=== PATIENT | male | born 1950 | race Caucasian/White ===

== ENCOUNTER 2021-06-13 13:55 | Observation (INO) | payer MEDICARE, MEDICAID ==
[2021-06-13] MEDS ORDERED: MVI, Adult with Vitamin K 10 ML, Thiamine 100 MG, Folic Acid 1 MG in Sodium Chloride 0.... IV ONE ×4 (14:04)
--- NOTE | 2021-06-13 14:07 | EDM.PDOC ---
ED HPI GENERAL MEDICAL PROBLEM - General Chief Complaint: General Stated Complaint: EMS Time Seen by Provider: 06/13/21 13:59 Source of Information: Reports: Patient History Limitations: Reports: No Limitations - History of Present Illness INITIAL COMMENTS - FREE TEXT/NARRATIVE: HISTORY AND PHYSICAL: History of present illness: Patient is a 70-year-old male who presents to the emergency room by ambulance after falling. Patient states he is a daily drinker and states he has been drinking black velvet all day (which is typical for him) at a friend's house. He currently offers no complaints or concerns. EMS was told that he had fallen from a standing height. Patient states he falls frequently, does have a large hematoma/bruise of the right elbow which he reports is from 2 weeks ago. Upon arrival he is alert, oriented but agreeable for evaluation. Patient denies any fever, chills, headache, change in vision, syncope or near syncope. Denies any chest pain, back pain, shortness of breath or cough. Denies any abdominal pain, nausea, vomiting, diarrhea, constipation or dysuria. Has not noted any blood in urine or stool. Patient has been eating and drinking appropriately. No recent travel or sick contacts. Review of systems: As per history of present illness and below otherwise all systems reviewed and negative. Past medical history: As per history of present illness and as reviewed below otherwise noncontributory. Surgical history: As per history of present illness and as reviewed below otherwise noncontributory. Social history: See social history for further information Family history: As per history of present illness and as reviewed below otherwise noncontributory. Physical exam: General: Well developed and well nourished 70-year-old female. Alert and orientated x 3. Nontoxic in appearance and in no acute distress. Vital signs are stable and have been reviewed by me. Nursing notes were reviewed. HEENT: Nontender to touch, no obvious injury noted, normocephalic, pupils equal and reactive bilaterally, negative for conjunctival pallor or scleral icterus, mucous membranes moist, TMs normal bilaterally, throat clear, neck supple, nonte nder, trachea midline. No drooling or trismus noted. No meningeal signs. No hot potato voice noted. Lungs: Slightly diminished to auscultation bilaterally. No wheezes, rales, or rhonchi. Chest nontender. Normal work of breathing, no accessory muscles used. Heart: S1S2, regular rate and rhythm without overt murmur, gallops, or rubs. No JVD. No peripheral edema Abdomen: Soft, nondistended, nontender. Normoactive bowel sounds. Negative for masses or costovertebral tenderness. C-spine/Back: No pinpoint vertebral tenderness upon palpation. No crepitus, step-offs or obvious deformities. Pelvis is stable. Good flexion and extension of lower extremities, equal strength. Denies any urinary or fecal incontinence. Denies any numbness, tingling or saddle paresthesia. No concerns of serious infection, fracture or cord compression, or cauda equina syndrome. Deep tendon reflexes brisk bilaterally. Skin: Intact, warm, dry. Soft tissue swelling of right elbow. Excessively dry skin to feet bilaterally. No lesions or rashes noted. Hematologic: No petechiae or purpra. Mucosa appropriate color and normal nail bed color and refill. Extremities: Moves all extremities per self without difficulty or deficits, negative for cords or calf pain, equal strength to upper and lower extremiteis bilaterally. Strong and equal pretibial/pedal and radial pulses bilaterally. Neurovascular unremarkable. Neuro: Awake, alert, oriented. Cranial nerves II through XII unremarkable. Cerebellum unremarkable. Motor and sensory unremarkable throughout. Exam nonfocal. Psychiatric: Mood and affect are appropriate. Normal thought process. Answering questions appropriately. Please note that the patient was seen and evaluated during the 2019 SARS-CoV-2 novel coronavirus pandemic period. Community viral transmission is ongoing at time of this encounter and the emergency department is operating under pandemic response procedures. Medical Decision Making: Patient is a 70-year-old male who presents to the emergency room by ambulance after a fall. Patient states he is a daily drinker and has been drinking black velvet all day. On arrival he is alert, oriented and answering questions appropriately and following commands. He states he does not remember falling although he does fall frequently. At this time nothing is hurting and he offers no complaints or concerns. He is agreeable for an evaluation. Due to the intoxication I will do a head and neck CT with basic x-rays to rule out any distracting injuries. We will do basic lab work at this time as well. Patient does have a slight leukocytosis. Potassium is low at 2.9. Will replace with IV potassium since he will likely be admitted. His alcohol is currently 330. Elbow x-ray is negative right elbow. Focal soft tissue swelling along the dorsal aspect of the proximal forearm. Chest x-ray shows minimal airspace densities present in the medial left lung base. Findings may be due to atelectasis. Pelvis x-ray shows degenerative changes. No visible acute posttraumatic finding. Head CT shows a small acute subarachnoid hemorrhage overlying the high right frontal convexities. No intraparenchymal hemorrhage. Atrophy and white matter disease. The calvaria appear intact. C-spine CT shows no fracture, dislocation or destructive process. Mild to moderate degenerative changes. Dense atherosclerotic vascular calcifications. There is a 4 millimeter left upper lobe nodule. A nodule of this size does not require follow-up except in high-risk individuals in which case a 12 month follow-up CT should be considered. 1350: I spoke with Dr Lima, ED physician, at [facility] in [place] about this patient. She wanted me to talk with Dr Martino, Neurosurgeon on-call. Spoke with Dr Martino about this patient. Reviewed all findings and patient's current status. Dr Martino does not feel this patient requires transfer, stating this is not a surgical issue and doesn't require more than observation. Recommends routine neuro checks and if there is any change in status to repeat imaging. Spoke with Dr Palacio, hospitalist on-call, who is aware of patient and recommendations by Dr. Martino. He is agreeable to keeping this patient for further care and management. Patient continues to be neurologically intact. Patient continues to deny any pain or concerns at this time. I have talked with the patient about today's findings, in addition to providing specific details for plan of care. Reassessment demonstrates that the patient is in no acute distress. Patient is alert and answering questions appropriately. He is aware of today's need to stay for further care and management. VSS. Will continue to do frequent neurochecks while waiting for Med/Surg bed. Diagnostics: CBC, CMP, UA, urine drug screen, EtOH, COVID-19, head CT, cervical spine CT, chest x-ray, pelvis, right elbow Therapeutics: Banana bag @ 125mlsl/hr Impression: Acute alcohol intoxication Subarachnoid hemorrhage Fall Plan: Observation admission with telemetry Definitive disposition and diagnosis as appropriate pending reevaluation and review of above. - Related Data Allergies Allergy/AdvReac Type Severity Reaction Status Date / Time No Known Allergies Allergy Verified 06/13/21 13:59 ED ROS GENERAL - Review of Systems Review Of Systems: Comprehensive ROS is negative, except as noted in HPI. ED EXAM, GENERAL - Physical Exam Exam: See Below (See dictation) Course - Vital Signs Last Recorded V/S: Last Vital Signs Temp 96.5 F L 06/13/21 14:03 Pulse 72 06/13/21 15:44 Resp 18 06/13/21 15:44 BP 132/75 06/13/21 15:44 Pulse Ox 97 06/13/21 15:44 - Orders/Labs/Meds Orders: Active Orders 24 hr Category Date Time Status DRUG SCREEN, URINE [URCHEM] Stat Lab 06/13/21 14:06 Ordered UA RFX BHANU AND CULT IF INDIC [URIN] Stat Lab 06/13/21 14:04 Ordered Medication Orders Potassium Chloride 40 meq/ (Premix) 100 mls @ 25 mls/hr IV ONETIME ONE Stop: 06/13/21 20:16 Labs: Laboratory Tests 06/13/21 06/13/21 06/13/21 Range/Units 14:19 15:00 15:00 WBC 12.01 H (4.0-11.0) K/uL RBC 4.31 L (4.50-5.90) M/uL Hgb 14.4 (13.0-17.0) g/dL Hct 38.9 (38.0-50.0) % MCV 90.3 (80.0-98.0) fL MCH 33.4 H (27.0-32.0) pg MCHC 37.0 (31.0-37.0) g/dL RDW Std Deviation 49.8 (28.0-62.0) fl RDW Coeff of [place]asa 15 (11.0-15.0) % Plt Count 139 L (150-400) K/uL MPV 8.70 (7.40-12.00) fL Neut % (Auto) 69.2 (48.0-80.0) % Lymph % (Auto) 24.6 (16.0-40.0) % [place] % (Auto) 5.6 (0.0-15.0) % Eos % (Auto) 0.4 (0.0-7.0) % Baso % (Auto) 0.2 (0.0-1.5) % Neut # (Auto) 8.3 H (1.4-5.7) K/uL Lymph # (Auto) 3.0 H (0.6-2.4) K/uL [place] # (Auto) 0.7 (0.0-0.8) K/uL Eos # (Auto) 0.1 (0.0-0.7) K/uL Baso # (Auto) 0.0 (0.0-0.1) K/uL Nucleated RBC % 0.0 /100WBC Nucleated RBCs # 0 K/uL INR 0.95 Sodium (136-148) mmol/L Potassium (3.5-5.1) mmol/L Chloride (98-107) mmol/L Carbon Dioxide (21.0-32.0) mmol/L BUN (7.0-18.0) mg/dL Creatinine (0.8-1.3) mg/dL Est Cr Clr Drug Dosing Estimated GFR (MDRD) ml/min Glucose (74-106) mg/dL Calcium (8.5-10.1) mg/dL Total Bilirubin (0.2-1.0) mg/dL AST (15-37) IU/L ALT (14-63) IU/L Alkaline Phosphatase (46-116) U/L Troponin I (0.000-0.056) ng/mL Total Protein (6.4-8.2) g/dL Albumin (3.4-5.0) g/dL Globulin (2.6-4.0) g/dL Albumin/Globulin Ratio (0.9-1.6) Ethyl Alcohol mg/dL SARS-CoV-2 RNA ([facility]) NEGATIVE (NEGATIVE) 06/13/21 Range/Units 15:00 WBC (4.0-11.0) K/uL RBC (4.50-5.90) M/uL Hgb (13.0-17.0) g/dL Hct (38.0-50.0) % MCV (80.0-98.0) fL MCH (27.0-32.0) pg MCHC (31.0-37.0) g/dL RDW Std Deviation (28.0-62.0) fl RDW Coeff of [place] (11.0-15.0) % Plt Count (150-400) K/uL MPV (7.40-12.00) fL Neut % (Auto) (48.0-80.0) % Lymph % (Auto) (16.0-40.0) % [place] % (Auto) (0.0-15.0) % Eos % (Auto) (0.0-7.0) % Baso % (Auto) (0.0-1.5) % Neut # (Auto) (1.4-5.7) K/uL Lymph # (Auto) (0.6-2.4) K/uL [place] # (Auto) (0.0-0.8) K/uL Eos # (Auto) (0.0-0.7) K/uL Baso # (Auto) (0.0-0.1) K/uL Nucleated RBC % /100WBC Nucleated RBCs # K/uL INR Sodium 133 L (136-148) mmol/L Potassium 2.9 L (3.5-5.1) mmol/L Chloride 94 L (98-107) mmol/L Carbon Dioxide 23.2 (21.0-32.0) mmol/L BUN 9 (7.0-18.0) mg/dL Creatinine 0.9 (0.8-1.3) mg/dL Est Cr Clr Drug Dosing TNP Estimated GFR (MDRD) > 60.0 ml/min Glucose 120 H (74-106) mg/dL Calcium 8.7 (8.5-10.1) mg/dL Total Bilirubin 0.7 (0.2-1.0) mg/dL AST 37 (15-37) IU/L ALT 44 (14-63) IU/L Alkaline Phosphatase 90 (46-116) U/L Troponin I < 0.050 (0.000-0.056) ng/mL Total Protein 7.7 (6.4-8.2) g/dL Albumin 3.4 (3.4-5.0) g/dL Globulin 4.3 H (2.6-4.0) g/dL Albumin/Globulin Ratio 0.8 L (0.9-1.6) Ethyl Alcohol 330 mg/dL SARS-CoV-2 RNA ([facility]) (NEGATIVE) Meds: Medications Generic Name Dose Route Start Last Admin Trade Name Freq PRN Reason Stop Dose Admin Potassium Chloride 40 meq/ 100 mls @ 25 mls/hr 06/13/21 16:17 Premix IV 06/13/21 20:16 ONETIME ONE Discontinued Medications Generic Name Dose Route Start Last Admin Trade Name Johnnie PRN Reason Stop Dose Admin Folic Acid 1 mg 06/13/21 15:30 06/13/21 15:49 Folic Acid 50 Mg/10 Ml Mdv IV 06/13/21 15:31 1 mg ONETIME ONE Administration Sodium Chloride 1,000 mls @ 999 mls/hr 06/13/21 14:14 06/13/21 15:47 Normal Saline IV 06/13/21 15:14 Not Given STAT ONE Multivitamins/Minerals 10 ml/ 1,010 mls @ 1,010 mls/hr 06/13/21 15:30 06/13/21 15:50 Sodium Chloride IV 06/13/21 16:29 1,010 mls/hr ONETIME ONE Administration Thiamine HCl 100 mg 06/13/21 15:30 06/13/21 16:07 Thiamine 200 Mg/2 Ml Mdv IVPUSH 06/13/21 15:31 100 mg ONETIME ONE Administration Departure - Departure Time of Disposition: 16:55 Disposition: Home, Self-Care 01 Clinical Impression: Subarachnoid hemorrhage, Hypokalemia Fall Qualifiers: Encounter type: initial encounter Qualified Code(s): W19.XXXA - Unspecified fall, initial encounter - Discharge Information Sepsis Event Note (ED) - Evaluation Sepsis Screening Result: No Definite Risk - Focused Exam Vital Signs: Vital Signs Temp Pulse Resp BP Pulse Ox 06/13/21 15:44 72 18 132/75 97 06/13/21 14:03 96.5 F L 78 16 127/82 96 - My Orders Last 24 Hours: My Active Orders 06/13/21 14:04 UA RFX BHANU AND CULT IF INDIC [URIN] Stat 06/13/21 14:06 DRUG SCREEN, URINE [URCHEM] Stat - Assessment/Plan Last 24 Hours: My Active Orders 06/13/21 14:04 UA RFX BHANU AND CULT IF INDIC [URIN] Stat 06/13/21 14:06 DRUG SCREEN, URINE [URCHEM] Stat
[2021-06-13] MEDS ORDERED: Sodium Chloride 0.9% 1,000 ML IV ONE (14:14)
--- NOTE | 2021-06-13 14:32 | CR ---
INDICATION: Alcohol intoxication, unwitnessed chest injury from fall TECHNIQUE: Chest radiograph 1 view COMPARISON: None FINDINGS: The sensitivity and specificity of the exam are moderately limited by the patient`s body habitus and the lordotic technique. Mediastinum: The mediastinum is normal in appearance. The heart silhouette is normal in size and morphology. Lung: Minimal airspace densities present in the medial left lung base. No sign of pleural effusion seen. No pneumothorax is identified. Bone and Soft tissue: Unremarkable for age. IMPRESSIONS: 1. Minimal airspace densities present in the medial left lung base. Findings may be due to atelectasis. 2. If there is a high clinical index of suspicion for rib injury, dedicated rib series radiographs are recommended. Dictated by Augustine Salgado MD @ 06/13/2021 2:31:42 PM Dictated by: Augustine Salgado MD @ 06/13/2021 14:31:47 (Electronically Signed)
--- NOTE | 2021-06-13 15:01 | CR ---
INDICATION: Unwitnessed fall. ETOH. TECHNIQUE: Three views of the right elbow. COMPARISON: None. FINDINGS: Focal soft tissue swelling along the dorsal aspect of the proximal forearm. No elbow joint effusion, fracture or other abnormality. IMPRESSION: 1. Negative right elbow. 2. Focal soft tissue swelling along the dorsal aspect of the proximal forearm. Dictated by Donald Haile MD @ 06/13/2021 3:00:34 PM (Electronically Signed)
--- NOTE | 2021-06-13 15:01 | CR ---
Indication: Pain. Trauma. Technique: Single view of the pelvis was acquired Comparison: None Findings: Degenerative changes of the visible lower lumbar spine. 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 No visible acute fracture, dislocation or destructive process. Impression: Degenerative changes. No visible acute posttraumatic finding. Dictated by Eduardo Pedroza MD @ 06/13/2021 3:00:48 PM (Electronically Signed)
[2021-06-13] MEDS ORDERED: Folic Acid 50 MG/10 ML MDV IV ONE (15:30)
[2021-06-13] MEDS ORDERED: Thiamine 200 MG/2 ML MDV IVPUSH ONE (15:30)
[2021-06-13] MEDS ORDERED: MVI, Adult with Vitamin K 10 ML in Sodium Chloride 0.9% 1,000 ML IV ONE ×2 (15:30)
--- NOTE | 2021-06-13 15:39 | CT ---
INDICATION: Trauma. ETOH COMPARISON: No prior CTs available for comparison. TECHNIQUE: CT examination of the head was performed as axial sections without intravenous contrast. Images were obtained from the vertex of the skull through the skull base. Please note that all CT scans at this facility use dose modulation, iterative reconstruction, and/or weight-based dosing when appropriate to reduce radiation dose to as low as reasonably achievable. FINDINGS: There is a small acute subarachnoid hemorrhage identified. This overlies the right frontal convexities and is seen on axial image 35, 37, 38 and 39. No intraparenchymal hemorrhage. There are involutional changes. There is moderate cortical atrophy and there is mild to moderate white matter disease. There is no hydrocephalus. The visualized portions of the orbits are normal in appearance. The osseous structures are normal in appearance with no sign of abnormality in the skull base or calvarium. IMPRESSION: 1. Small acute subarachnoid hemorrhage overlying the high right frontal convexities. No intraparenchymal hemorrhage. 2. Atrophy and white matter disease. 3. The calvaria appear intact. 4. I discussed the above findings directly with Dr. Jean at 3:35 p.m. on June 13, [address] all [address] scans at this facility use dose modulation, iterative reconstruction, and/or weight-based dosing when appropriate to reduce radiation dose to as low as reasonably achievable. Dictated by Eduardo Pedroza MD @ 06/13/2021 3:38:01 PM (Electronically Signed)
[2021-06-13 15:41] LABS: BLOOD UREA NITROGEN,BUN 9 mg/dL (7.0-18.0); CARBON DIOXIDE,CO2 23.2 mmol/L (21.0-32.0); CHLORIDE,CL 94 mmol/L (98-107); GLUCOSE RANDOM 120 mg/dL (74-106); POTASSIUM,K 2.9 mmol/L (3.5-5.1); SODIUM,NA 133 mmol/L (136-148)
--- NOTE | 2021-06-13 15:43 | CT ---
INDICATION: Trauma COMPARISON: None TECHNIQUE: CT examination of the cervical spine is performed without contrast using spiral technique. Thin axial, sagittal and coronal reconstructions were made. Please note that all CT scans at this facility use dose modulation, iterative reconstruction, and/or weight-based dosing when appropriate to reduce radiation dose to as low as reasonably achievable. FINDINGS: : Bone mineral density is decreased. There is no lytic or blastic lesion, fracture or dislocation identified. There are [id number] degenerative changes primarily in the mid and lower cervical spine. There are dense atherosclerotic vascular calcifications. A 4 millimeter left upper lobe nodule is identified. Generally, nodules of this size do not require follow-up except in high-risk individuals in which case a 12 month follow-up CT would be advised. IMPRESSION: 1. No fracture, dislocation or destructive process. Mild to moderate degenerative changes. 2. Dense atherosclerotic vascular calcifications. 3. There is a 4 millimeter left upper lobe nodule. A nodule of this size does not require follow-up except in high-risk individuals in which case a 12 month follow-up CT should be considered. Please note that all CT scans at this facility use dose modulation, iterative reconstruction, and/or weight-based dosing when appropriate to reduce radiation dose to as low as reasonably achievable. Dictated by Eduardo Pedroza MD @ 06/13/2021 3:42:34 PM (Electronically Signed)
[2021-06-13] MEDS ORDERED: Potassium Chloride Riders 40 MEQ in Premix Bag 1 BAG IV ONE (16:17)
--- NOTE | 2021-06-13 16:50 | PCM.EKG ---
#1 Interpretation EKG Date: 06/13/21 Time: 14:22 Rhythm: NSR Rate (Beats/Min): 73 [place]: Normal P-Wave: Present QRS: Other (non specfic IVCD) ST-T: Normal QT: Normal Comparison: NA - No Prior EKG EKG Interpretation Comments: Sinus Rhythm with nonspecific IVCD
[2021-06-13] MEDS ORDERED: Acetaminophen 325 MG Tab PO PRN (17:05)
--- NOTE | 2021-06-13 17:13 | PCM.HP.2 ---
H&P History of Present Illness - General Date of Service: 06/13/21 Admit Problem/Dx: Admission Diagnosis/Problem Admission Diagnosis/Problem Subarachnoid hemorrhage - History of Present Illness Initial Comments - Free Text/Narative: 70 yo male with pmh of ETOH abuse presents to the ED via ambulance after falling. He drinks daily and is intoxicated in the ED. He denies any headache, chest pain, shortness of breath or fevers. IN the ED CT head reported small Subarachnoid hemorrhage of the right frontal convexities. Dr. Martino was called and recommended observation. - Related Data Allergies/Adverse Reactions: Allergies Allergy/AdvReac Type Severity Reaction Status Date / Time No Known Allergies Allergy Verified 06/13/21 13:59 Past Medical History - Past Health History Medical/Surgical History: Denies Medical/Surgical History Other Cardiovascular History: pt states he has heart problem that he takes pills for, but is unable to state what the condition is - Infectious Disease History Infectious Disease History: Reports: Chicken Pox, Mumps Social & Family History - Family History Family Medical History: No Pertinent Family History - Tobacco Use Tobacco Use Status *Q: Current Every Day Tobacco User Years of Tobacco use: 40 Packs/Tins Daily: 1 - Recreational Drug Use Recreational Drug Use: No H&P Review of Systems - Review of Systems: Review Of Systems: Comprehensive ROS is negative, except as noted in HPI. Exam - Exam Exam: See Below - Vital Signs Vital Signs: Last Vital Signs Temp 35.8 C L 06/13/21 14:03 Pulse 72 06/13/21 15:44 Resp 18 06/13/21 15:44 BP 132/75 06/13/21 15:44 Pulse Ox 97 06/13/21 15:44 Weight: 95.254 kg - Exam General: Alert, Oriented HEENT: Mucosa Moist & Kemp, Posterior Pharynx Clear, Pupils Equal, Other (atraumatic) Lungs: Clear to Auscultation, Normal Respiratory Effort Cardiovascular: Regular Rate, Regular Rhythm GI/Abdominal Exam: Normal Bowel Sounds, Soft, Non-Tender Extremities: Non-Tender, No Pedal Edema Skin: Warm, Dry, Intact Neurological: Cranial Nerves Intact, Strength Equal Bilateral, Normal Gait, Normal Speech. No: Focal Deficit - Patient Data Lab Results Last 24 hrs: Laboratory Results - last 24 hr 06/13/21 06/13/21 06/13/21 Range/Units 14:19 15:00 15:00 WBC 12.01 H (4.0-11.0) K/uL RBC 4.31 L (4.50-5.90) M/uL Hgb 14.4 (13.0-17.0) g/dL Hct 38.9 (38.0-50.0) % MCV 90.3 (80.0-98.0) fL MCH 33.4 H (27.0-32.0) pg MCHC 37.0 (31.0-37.0) g/dL RDW Std Deviation 49.8 (28.0-62.0) fl RDW Coeff of Manasa 15 (11.0-15.0) % Plt Count 139 L (150-400) K/uL MPV 8.70 (7.40-12.00) fL Neut % (Auto) 69.2 (48.0-80.0) % Lymph % (Auto) 24.6 (16.0-40.0) % Delta % (Auto) 5.6 (0.0-15.0) % Eos % (Auto) 0.4 (0.0-7.0) % Baso % (Auto) 0.2 (0.0-1.5) % Neut # (Auto) 8.3 H (1.4-5.7) K/uL Lymph # (Auto) 3.0 H (0.6-2.4) K/uL Delta # (Auto) 0.7 (0.0-0.8) K/uL Eos # (Auto) 0.1 (0.0-0.7) K/uL Baso # (Auto) 0.0 (0.0-0.1) K/uL Nucleated RBC % 0.0 /100WBC Nucleated RBCs # 0 K/uL INR 0.95 Sodium (136-148) mmol/L Potassium (3.5-5.1) mmol/L Chloride (98-107) mmol/L Carbon Dioxide (21.0-32.0) mmol/L BUN (7.0-18.0) mg/dL Creatinine (0.8-1.3) mg/dL Est Cr Clr Drug Dosing Estimated GFR (MDRD) ml/min Glucose (74-106) mg/dL Calcium (8.5-10.1) mg/dL Total Bilirubin (0.2-1.0) mg/dL AST (15-37) IU/L ALT (14-63) IU/L Alkaline Phosphatase (46-116) U/L Troponin I (0.000-0.056) ng/mL Total Protein (6.4-8.2) g/dL Albumin (3.4-5.0) g/dL Globulin (2.6-4.0) g/dL Albumin/Globulin Ratio (0.9-1.6) Ethyl Alcohol mg/dL SARS-CoV-2 RNA ([facility]) NEGATIVE (NEGATIVE) 06/13/21 Range/Units 15:00 WBC (4.0-11.0) K/uL RBC (4.50-5.90) M/uL Hgb (13.0-17.0) g/dL Hct (38.0-50.0) % MCV (80.0-98.0) fL MCH (27.0-32.0) pg MCHC (31.0-37.0) g/dL RDW Std Deviation (28.0-62.0) fl RDW Coeff of Manasa (11.0-15.0) % Plt Count (150-400) K/uL MPV (7.40-12.00) fL Neut % (Auto) (48.0-80.0) % Lymph % (Auto) (16.0-40.0) % Delta % (Auto) (0.0-15.0) % Eos % (Auto) (0.0-7.0) % Baso % (Auto) (0.0-1.5) % Neut # (Auto) (1.4-5.7) K/uL Lymph # (Auto) (0.6-2.4) K/uL Delta # (Auto) (0.0-0.8) K/uL Eos # (Auto) (0.0-0.7) K/uL Baso # (Auto) (0.0-0.1) K/uL Nucleated RBC % /100WBC Nucleated RBCs # K/uL INR Sodium 133 L (136-148) mmol/L Potassium 2.9 L (3.5-5.1) mmol/L Chloride 94 L (98-107) mmol/L Carbon Dioxide 23.2 (21.0-32.0) mmol/L BUN 9 (7.0-18.0) mg/dL Creatinine 0.9 (0.8-1.3) mg/dL Est Cr Clr Drug Dosing TNP Estimated GFR (MDRD) > 60.0 ml/min Glucose 120 H (74-106) mg/dL Calcium 8.7 (8.5-10.1) mg/dL Total Bilirubin 0.7 (0.2-1.0) mg/dL AST 37 (15-37) IU/L ALT 44 (14-63) IU/L Alkaline Phosphatase 90 (46-116) U/L Troponin I < 0.050 (0.000-0.056) ng/mL Total Protein 7.7 (6.4-8.2) g/dL Albumin 3.4 (3.4-5.0) g/dL Globulin 4.3 H (2.6-4.0) g/dL Albumin/Globulin Ratio 0.8 L (0.9-1.6) Ethyl Alcohol 330 mg/dL SARS-CoV-2 RNA ([facility]) (NEGATIVE) Result Diagrams: 06/13/21 15:00 06/13/21 15:00 Sepsis Event Note - Evaluation Sepsis Screening Result: No Definite Risk - Focused Exam Vital Signs: Vital Signs Temp Pulse Resp BP Pulse Ox 06/13/21 15:44 72 18 132/75 97 06/13/21 14:03 35.8 C L 78 16 127/82 96 Problem List Initiated/Reviewed/Updated: Yes Orders Last 24hrs: Active Orders 24 hr Category Date Time Status Admission Status [Patient Status] [ADT] Stat ADT 06/13/21 15:55 Active Antiembolic Devices [RC] PER UNIT ROUTINE Care 06/13/21 17:06 Active Neuro Check [RC] Q4HPRN Care 06/13/21 17:06 Active Oxygen Therapy [RC] PRN Care 06/13/21 17:05 Active Up ad Marilee [RC] ASDIRECTED Care 06/13/21 17:05 Active VTE/DVT Education [RC] PER UNIT ROUTINE Care 06/13/21 17:05 Active Vital Signs [RC] Q4H Care 06/13/21 17:05 Active Regular Diet [DIET] Diet 06/13/21 Breakfast Active CBC WITH AUTO DIFF [HEME] AM Lab 06/14/21 05:11 Ordered COMPREHENSIVE METABOLIC PN,CMP [CHEM] AM Lab 06/14/21 05:11 Ordered DRUG SCREEN, URINE [URCHEM] Stat Lab 06/13/21 14:06 Ordered MAGNESIUM [CHEM] AM Lab 06/14/21 05:11 Ordered MAGNESIUM [CHEM] Routine Lab 06/13/21 17:05 Ordered PHOSPHORUS [CHEM] AM Lab 06/14/21 05:11 Ordered PHOSPHORUS [CHEM] Routine Lab 06/13/21 17:05 Ordered UA RFX BHANU AND CULT IF INDIC [URIN] Stat Lab 06/13/21 14:04 Ordered Acetaminophen [TylenoL] Med 06/13/21 17:05 Ordered 650 mg PO Q4H PRN Folic Acid Med 06/14/21 09:00 Ordered 1 mg SUBCUT DAILY LORazepam [Ativan] Med 06/13/21 17:08 Ordered See Protocol IVPUSH Q4H PRN Potassium Chloride Riders [KCL in Water 40 MEQ/100 ML] Med 06/13/21 16:17 Active 40 meq Premix Bag 1 bag IV ONETIME Thiamine [Vitamin B-1] Med 06/14/21 09:00 Ordered 100 mg IVPUSH DAILY Sequential Compression Device [OM.PC] Per Unit Routine Oth 06/13/21 17:05 Ordered Resuscitation Status Routine Resus Stat 06/13/21 17:05 Ordered Medication Orders Acetaminophen (Acetaminophen 325 Mg Tab) 650 mg PO Q4H PRN PRN Reason: Pain (Mild 1-3)/fever Folic Acid (Folic Acid 50 Mg/10 Ml Mdv) 1 mg SUBCUT DAILY LIBBY Potassium Chloride 40 meq/ (Premix) 100 mls @ 25 mls/hr IV ONETIME ONE Stop: 06/13/21 20:16 Lorazepam (Lorazepam 2 Mg/Ml Sdv) 0 mg IVPUSH Q4H PRN; Protocol PRN Reason: CIWAA Thiamine HCl (Thiamine 200 Mg/2 Ml Mdv) 100 mg IVPUSH DAILY LIBBY Assessment/Plan Comment:: 70 yo male with PMH of ETOH abuse admitted following a fall with subarachnoid hemorrhage. Subarachnoid hemorrhage: will monitor overnight ETOH abuse: will place on CIWAA protocol, thiamin and folic acid
[2021-06-13] MEDS ORDERED: Sodium Chloride 0.9% with KCl 1,000 ML IV ONE (18:00)
[2021-06-14] MEDS: LORazepam 2 MG/ML SDV IVPUSH PRN ×4 (03:14→13:12)
[2021-06-14 08:34] LABS: BLOOD UREA NITROGEN,BUN 9 mg/dL (7.0-18.0); CARBON DIOXIDE,CO2 25.1 mmol/L (21.0-32.0); CHLORIDE,CL 101 mmol/L (98-107); GLUCOSE RANDOM 105 mg/dL (74-106); POTASSIUM,K 3.5 mmol/L (3.5-5.1); SODIUM,NA 140 mmol/L (136-148)
[2021-06-14] MEDS: Thiamine 200 MG/2 ML MDV IVPUSH SCH (08:55)
[2021-06-14] MEDS: Folic Acid 50 MG/10 ML MDV SUBCUT SCH (08:58)
[2021-06-14] MEDS ORDERED: Magnesium Sulfate/Water 2 GM/50 ML Premix Bag IV ONE (14:08)
--- NOTE | 2021-06-14 14:09 | PCM.PN ---
- General Info Date of Service: 06/14/21 - Review of Systems Systems Review Comment:: no headache, no weakness or numbness - Patient Data Vitals - Most Recent: Last Vital Signs Temp 37.5 C 06/14/21 09:04 Pulse 102 H 06/14/21 09:04 Resp 19 06/14/21 09:04 BP 146/91 H 06/14/21 09:04 Pulse Ox 92 L 06/14/21 09:04 Weight - Most Recent: 95.254 kg I&O - Last 24 Hours: Intake & Output 06/13/21 06/14/21 06/14/21 22:59 06:59 14:59 Intake Total 800 Output Total 1200 Balance -400 Lab Results Last 24 Hours: Laboratory Results - last 24 hr 06/13/21 06/13/21 06/13/21 Range/Units 14:19 15:00 15:00 WBC 12.01 H (4.0-11.0) K/uL RBC 4.31 L (4.50-5.90) M/uL Hgb 14.4 (13.0-17.0) g/dL Hct 38.9 (38.0-50.0) % MCV 90.3 (80.0-98.0) fL MCH 33.4 H (27.0-32.0) pg MCHC 37.0 (31.0-37.0) g/dL RDW Std Deviation 49.8 (28.0-62.0) fl RDW Coeff of [place] 15 (11.0-15.0) % Plt Count 139 L (150-400) K/uL MPV 8.70 (7.40-12.00) fL Neut % (Auto) 69.2 (48.0-80.0) % Lymph % (Auto) 24.6 (16.0-40.0) % [place] % (Auto) 5.6 (0.0-15.0) % Eos % (Auto) 0.4 (0.0-7.0) % Baso % (Auto) 0.2 (0.0-1.5) % Neut # (Auto) 8.3 H (1.4-5.7) K/uL Lymph # (Auto) 3.0 H (0.6-2.4) K/uL [place] # (Auto) 0.7 (0.0-0.8) K/uL Eos # (Auto) 0.1 (0.0-0.7) K/uL Baso # (Auto) 0.0 (0.0-0.1) K/uL Nucleated RBC % 0.0 /100WBC Nucleated RBCs # 0 K/uL INR 0.95 Sodium (136-148) mmol/L Potassium (3.5-5.1) mmol/L Chloride (98-107) mmol/L Carbon Dioxide (21.0-32.0) mmol/L BUN (7.0-18.0) mg/dL Creatinine (0.8-1.3) mg/dL Est Cr Clr Drug Dosing Estimated GFR (MDRD) ml/min Glucose (74-106) mg/dL Calcium (8.5-10.1) mg/dL Phosphorus (2.6-4.7) mg/dL Magnesium (1.8-2.4) mg/dL Total Bilirubin (0.2-1.0) mg/dL AST (15-37) IU/L ALT (14-63) IU/L Alkaline Phosphatase (46-116) U/L Troponin I (0.000-0.056) ng/mL Total Protein (6.4-8.2) g/dL Albumin (3.4-5.0) g/dL Globulin (2.6-4.0) g/dL Albumin/Globulin Ratio (0.9-1.6) Urine Color Urine Appearance Urine pH (5.0-8.0) Ur Specific [place] (1.001-1.035) Urine Protein (NEGATIVE) mg/dL Urine Glucose (UA) (NEGATIVE) mg/dL Urine Ketones (NEGATIVE) mg/dL Urine Occult Blood (NEGATIVE) Urine Nitrite (NEGATIVE) Urine Bilirubin (NEGATIVE) Urine Urobilinogen (<2.0) EU/dL Ur Leukocyte Esterase (NEGATIVE) Urine RBC (0-2/HPF) Urine WBC (0-5/HPF) Ur Epithelial Cells (NONE-FEW) Urine Bacteria (NEGATIVE) Urine Mucus (NONE-MOD) Urine Opiates Screen (NEGATIVE) Ur Oxycodone Screen (NEGATIVE) Urine Methadone Screen (NEGATIVE) Ur Barbiturates Screen (NEGATIVE) Ur Phencyclidine Scrn (NEGATIVE) Ur Amphetamine Screen (NEGATIVE) U Methamphetamines Scrn (NEGATIVE) U Benzodiazepines Scrn (NEGATIVE) U Cocaine Metab Screen (NEGATIVE) U Marijuana (THC) Screen (NEGATIVE) Ethyl Alcohol mg/dL SARS-CoV-2 RNA (MIRA) NEGATIVE (NEGATIVE) 06/13/21 06/13/21 06/13/21 Range/Units 15:00 15:00 21:49 WBC (4.0-11.0) K/uL RBC (4.50-5.90) M/uL Hgb (13.0-17.0) g/dL Hct (38.0-50.0) % MCV (80.0-98.0) fL MCH (27.0-32.0) pg MCHC (31.0-37.0) g/dL RDW Std Deviation (28.0-62.0) fl RDW Coeff of [place] (11.0-15.0) % Plt Count (150-400) K/uL MPV (7.40-12.00) fL Neut % (Auto) (48.0-80.0) % Lymph % (Auto) (16.0-40.0) % [place] % (Auto) (0.0-15.0) % Eos % (Auto) (0.0-7.0) % Baso % (Auto) (0.0-1.5) % Neut # (Auto) (1.4-5.7) K/uL Lymph # (Auto) (0.6-2.4) K/uL [place] # (Auto) (0.0-0.8) K/uL Eos # (Auto) (0.0-0.7) K/uL Baso # (Auto) (0.0-0.1) K/uL Nucleated RBC % /100WBC Nucleated RBCs # K/uL INR Sodium 133 L (136-148) mmol/L Potassium 2.9 L (3.5-5.1) mmol/L Chloride 94 L (98-107) mmol/L Carbon Dioxide 23.2 (21.0-32.0) mmol/L BUN 9 (7.0-18.0) mg/dL Creatinine 0.9 (0.8-1.3) mg/dL Est Cr Clr Drug Dosing TNP Estimated GFR (MDRD) > 60.0 ml/min Glucose 120 H (74-106) mg/dL Calcium 8.7 (8.5-10.1) mg/dL Phosphorus 3.6 (2.6-4.7) mg/dL Magnesium 1.8 (1.8-2.4) mg/dL Total Bilirubin 0.7 (0.2-1.0) mg/dL AST 37 (15-37) IU/L ALT 44 (14-63) IU/L Alkaline Phosphatase 90 (46-116) U/L Troponin I < 0.050 (0.000-0.056) ng/mL Total Protein 7.7 (6.4-8.2) g/dL Albumin 3.4 (3.4-5.0) g/dL Globulin 4.3 H (2.6-4.0) g/dL Albumin/Globulin Ratio 0.8 L (0.9-1.6) Urine Color YELLOW Urine Appearance CLEAR Urine pH 6.0 (5.0-8.0) Ur Specific [place] 1.010 (1.001-1.035) Urine Protein NEGATIVE (NEGATIVE) mg/dL Urine Glucose (UA) NEGATIVE (NEGATIVE) mg/dL Urine Ketones NEGATIVE (NEGATIVE) mg/dL Urine Occult Blood TRACE-INTACT H (NEGATIVE) Urine Nitrite NEGATIVE (NEGATIVE) Urine Bilirubin NEGATIVE (NEGATIVE) Urine Urobilinogen 0.2 (<2.0) EU/dL Ur Leukocyte Esterase NEGATIVE (NEGATIVE) Urine RBC 0-2 (0-2/HPF) Urine WBC 0-1 (0-5/HPF) Ur Epithelial Cells RARE (NONE-FEW) Urine Bacteria FEW (NEGATIVE) Urine Mucus LIGHT (NONE-MOD) Urine Opiates Screen (NEGATIVE) Ur Oxycodone Screen (NEGATIVE) Urine Methadone Screen (NEGATIVE) Ur Barbiturates Screen (NEGATIVE) Ur Phencyclidine Scrn (NEGATIVE) Ur Amphetamine Screen (NEGATIVE) U Methamphetamines Scrn (NEGATIVE) U Benzodiazepines Scrn (NEGATIVE) U Cocaine Metab Screen (NEGATIVE) U Marijuana (THC) Screen (NEGATIVE) Ethyl Alcohol 330 mg/dL SARS-CoV-2 RNA (MIRA) (NEGATIVE) 06/13/21 06/14/21 06/14/21 Range/Units 21:49 06:43 06:43 WBC 8.62 (4.0-11.0) K/uL RBC 4.22 L (4.50-5.90) M/uL Hgb 13.7 (13.0-17.0) g/dL Hct 38.7 (38.0-50.0) % MCV 91.7 (80.0-98.0) fL MCH 32.5 H (27.0-32.0) pg MCHC 35.4 (31.0-37.0) g/dL RDW Std Deviation 50.8 (28.0-62.0) fl RDW Coeff of [place] 15 (11.0-15.0) % Plt Count 152 (150-400) K/uL MPV 9.50 (7.40-12.00) fL Neut % (Auto) 79.5 (48.0-80.0) % Lymph % (Auto) 12.8 L (16.0-40.0) % [place] % (Auto) 7.2 (0.0-15.0) % Eos % (Auto) 0.3 (0.0-7.0) % Baso % (Auto) 0.2 (0.0-1.5) % Neut # (Auto) 6.9 H (1.4-5.7) K/uL Lymph # (Auto) 1.1 (0.6-2.4) K/uL [place] # (Auto) 0.6 (0.0-0.8) K/uL Eos # (Auto) 0.0 (0.0-0.7) K/uL Baso # (Auto) 0.0 (0.0-0.1) K/uL Nucleated RBC % 0.0 /100WBC Nucleated RBCs # 0 K/uL INR Sodium 140 (136-148) mmol/L Potassium 3.5 (3.5-5.1) mmol/L Chloride 101 (98-107) mmol/L Carbon Dioxide 25.1 (21.0-32.0) mmol/L BUN 9 (7.0-18.0) mg/dL Creatinine 0.7 L (0.8-1.3) mg/dL Est Cr Clr Drug Dosing 109.32 Estimated GFR (MDRD) > 60.0 ml/min Glucose 105 (74-106) mg/dL Calcium 8.4 L (8.5-10.1) mg/dL Phosphorus 2.8 (2.6-4.7) mg/dL Magnesium 1.6 L (1.8-2.4) mg/dL Total Bilirubin 1.1 H (0.2-1.0) mg/dL AST 46 H (15-37) IU/L ALT 46 (14-63) IU/L Alkaline Phosphatase 94 (46-116) U/L Troponin I (0.000-0.056) ng/mL Total Protein 7.6 (6.4-8.2) g/dL Albumin 3.6 (3.4-5.0) g/dL Globulin 4.0 (2.6-4.0) g/dL Albumin/Globulin Ratio 0.9 (0.9-1.6) Urine Color Urine Appearance Urine pH (5.0-8.0) Ur Specific [place] (1.001-1.035) Urine Protein (NEGATIVE) mg/dL Urine Glucose (UA) (NEGATIVE) mg/dL Urine Ketones (NEGATIVE) mg/dL Urine Occult Blood (NEGATIVE) Urine Nitrite (NEGATIVE) Urine Bilirubin (NEGATIVE) Urine Urobilinogen (<2.0) EU/dL Ur Leukocyte Esterase (NEGATIVE) Urine RBC (0-2/HPF) Urine WBC (0-5/HPF) Ur Epithelial Cells (NONE-FEW) Urine Bacteria (NEGATIVE) Urine Mucus (NONE-MOD) Urine Opiates Screen NEGATIVE (NEGATIVE) Ur Oxycodone Screen NEGATIVE (NEGATIVE) Urine Methadone Screen NEGATIVE (NEGATIVE) Ur Barbiturates Screen NEGATIVE (NEGATIVE) Ur Phencyclidine Scrn NEGATIVE (NEGATIVE) Ur Amphetamine Screen NEGATIVE (NEGATIVE) U Methamphetamines Scrn NEGATIVE (NEGATIVE) U Benzodiazepines Scrn NEGATIVE (NEGATIVE) U Cocaine Metab Screen NEGATIVE (NEGATIVE) U Marijuana (THC) Screen POSITIVE (NEGATIVE) Ethyl Alcohol mg/dL SARS-CoV-2 RNA (MIRA) (NEGATIVE) Med Orders - Current: Current Medications Acetaminophen (Acetaminophen 325 Mg Tab) 650 mg PO Q4H PRN PRN Reason: Pain (Mild 1-3)/fever Last Admin: 06/14/21 01:29 Dose: 650 mg Documented by: Diazepam (Diazepam 5 Mg Tab) 5 mg PO BID LIBBY Folic Acid (Folic Acid 50 Mg/10 Ml Mdv) 1 mg SUBCUT DAILY LIBBY Last Admin: 06/14/21 08:58 Dose: 1 mg Documented by: Lorazepam (Lorazepam 2 Mg/Ml Sdv) 0 mg IVPUSH Q4H PRN; Protocol PRN Reason: CIWAAlexia Last Admin: 06/14/21 13:12 Dose: 1 mg Documented by: Thiamine HCl (Thiamine 200 Mg/2 Ml Mdv) 100 mg IVPUSH DAILY [facility] Last Admin: 06/14/21 08:55 Dose: 100 mg Documented by: Discontinued Medications Folic Acid (Folic Acid 50 Mg/10 Ml Mdv) 1 mg IV ONETIME ONE Stop: 06/13/21 15:31 Last Admin: 06/13/21 15:49 Dose: 1 mg Documented by: Sodium Chloride (Normal Saline) 1,000 mls @ 999 mls/hr IV STAT ONE Stop: 06/13/21 15:14 Last Admin: 06/13/21 15:47 Dose: Not Given Documented by: Multivitamins/Minerals 10 ml/ (Sodium Chloride) 1,010 mls @ 1,010 mls/hr IV ONETIME ONE Stop: 06/13/21 16:29 Last Admin: 06/13/21 15:50 Dose: 1,010 mls/hr Documented by: Potassium Chloride/Sodium Chloride (Normal Saline With 40 Meq Kcl) 1,000 mls @ 250 mls/hr IV ONETIME ONE Stop: 06/13/21 21:59 Last Admin: 06/13/21 18:18 Dose: 250 mls/hr Documented by: Thiamine HCl (Thiamine 200 Mg/2 Ml Mdv) 100 mg IVPUSH ONETIME ONE Stop: 06/13/21 15:31 Last Admin: 06/13/21 16:07 Dose: 100 mg Documented by: - Exam General: Alert, Oriented Neck: Supple Lungs: Clear to Auscultation, Normal Respiratory Effort Cardiovascular: Regular Rate, Regular Rhythm GI/Abdominal Exam: Soft, Non-Tender Extremities: Non-Tender, No Pedal Edema Skin: Warm, Dry, Intact Neurological: No New Focal Deficit - Patient Data Lab Results Last 24 hrs: Laboratory Results - last 24 hr 06/13/21 06/13/21 06/13/21 Range/Units 14:19 15:00 15:00 WBC 12.01 H (4.0-11.0) K/uL RBC 4.31 L (4.50-5.90) M/uL Hgb 14.4 (13.0-17.0) g/dL Hct 38.9 (38.0-50.0) % MCV 90.3 (80.0-98.0) fL MCH 33.4 H (27.0-32.0) pg MCHC 37.0 (31.0-37.0) g/dL RDW Std Deviation 49.8 (28.0-62.0) fl RDW Coeff of [place] 15 (11.0-15.0) % Plt Count 139 L (150-400) K/uL MPV 8.70 (7.40-12.00) fL Neut % (Auto) 69.2 (48.0-80.0) % Lymph % (Auto) 24.6 (16.0-40.0) % [place] % (Auto) 5.6 (0.0-15.0) % Eos % (Auto) 0.4 (0.0-7.0) % Baso % (Auto) 0.2 (0.0-1.5) % Neut # (Auto) 8.3 H (1.4-5.7) K/uL Lymph # (Auto) 3.0 H (0.6-2.4) K/uL [place] # (Auto) 0.7 (0.0-0.8) K/uL Eos # (Auto) 0.1 (0.0-0.7) K/uL Baso # (Auto) 0.0 (0.0-0.1) K/uL Nucleated RBC % 0.0 /100WBC Nucleated RBCs # 0 K/uL INR 0.95 Sodium (136-148) mmol/L Potassium (3.5-5.1) mmol/L Chloride (98-107) mmol/L Carbon Dioxide (21.0-32.0) mmol/L BUN (7.0-18.0) mg/dL Creatinine (0.8-1.3) mg/dL Est Cr Clr Drug Dosing Estimated GFR (MDRD) ml/min Glucose (74-106) mg/dL Calcium (8.5-10.1) mg/dL Phosphorus (2.6-4.7) mg/dL Magnesium (1.8-2.4) mg/dL Total Bilirubin (0.2-1.0) mg/dL AST (15-37) IU/L ALT (14-63) IU/L Alkaline Phosphatase (46-116) U/L Troponin I (0.000-0.056) ng/mL Total Protein (6.4-8.2) g/dL Albumin (3.4-5.0) g/dL Globulin (2.6-4.0) g/dL Albumin/Globulin Ratio (0.9-1.6) Urine Color Urine Appearance Urine pH (5.0-8.0) Ur Specific [place] (1.001-1.035) Urine Protein (NEGATIVE) mg/dL Urine Glucose (UA) (NEGATIVE) mg/dL Urine Ketones (NEGATIVE) mg/dL Urine Occult Blood (NEGATIVE) Urine Nitrite (NEGATIVE) Urine Bilirubin (NEGATIVE) Urine Urobilinogen (<2.0) EU/dL Ur Leukocyte Esterase (NEGATIVE) Urine RBC (0-2/HPF) Urine WBC (0-5/HPF) Ur Epithelial Cells (NONE-FEW) Urine Bacteria (NEGATIVE) Urine Mucus (NONE-MOD) Urine Opiates Screen (NEGATIVE) Ur Oxycodone Screen (NEGATIVE) Urine Methadone Screen (NEGATIVE) Ur Barbiturates Screen (NEGATIVE) Ur Phencyclidine Scrn (NEGATIVE) Ur Amphetamine Screen (NEGATIVE) U Methamphetamines Scrn (NEGATIVE) U Benzodiazepines Scrn (NEGATIVE) U Cocaine Metab Screen (NEGATIVE) U Marijuana (THC) Screen (NEGATIVE) Ethyl Alcohol mg/dL SARS-CoV-2 RNA (MIRA) NEGATIVE (NEGATIVE) 06/13/21 06/13/21 06/13/21 Range/Units 15:00 15:00 21:49 WBC (4.0-11.0) K/uL RBC (4.50-5.90) M/uL Hgb (13.0-17.0) g/dL Hct (38.0-50.0) % MCV (80.0-98.0) fL MCH (27.0-32.0) pg MCHC (31.0-37.0) g/dL RDW Std Deviation (28.0-62.0) fl RDW Coeff of [place] (11.0-15.0) % Plt Count (150-400) K/uL MPV (7.40-12.00) fL Neut % (Auto) (48.0-80.0) % Lymph % (Auto) (16.0-40.0) % [place] % (Auto) (0.0-15.0) % Eos % (Auto) (0.0-7.0) % Baso % (Auto) (0.0-1.5) % Neut # (Auto) (1.4-5.7) K/uL Lymph # (Auto) (0.6-2.4) K/uL [place] # (Auto) (0.0-0.8) K/uL Eos # (Auto) (0.0-0.7) K/uL Baso # (Auto) (0.0-0.1) K/uL Nucleated RBC % /100WBC Nucleated RBCs # K/uL INR Sodium 133 L (136-148) mmol/L Potassium 2.9 L (3.5-5.1) mmol/L Chloride 94 L (98-107) mmol/L Carbon Dioxide 23.2 (21.0-32.0) mmol/L BUN 9 (7.0-18.0) mg/dL Creatinine 0.9 (0.8-1.3) mg/dL Est Cr Clr Drug Dosing TNP Estimated GFR (MDRD) > 60.0 ml/min Glucose 120 H (74-106) mg/dL Calcium 8.7 (8.5-10.1) mg/dL Phosphorus 3.6 (2.6-4.7) mg/dL Magnesium 1.8 (1.8-2.4) mg/dL Total Bilirubin 0.7 (0.2-1.0) mg/dL AST 37 (15-37) IU/L ALT 44 (14-63) IU/L Alkaline Phosphatase 90 (46-116) U/L Troponin I < 0.050 (0.000-0.056) ng/mL Total Protein 7.7 (6.4-8.2) g/dL Albumin 3.4 (3.4-5.0) g/dL Globulin 4.3 H (2.6-4.0) g/dL Albumin/Globulin Ratio 0.8 L (0.9-1.6) Urine Color YELLOW Urine Appearance CLEAR Urine pH 6.0 (5.0-8.0) Ur Specific [place] 1.010 (1.001-1.035) Urine Protein NEGATIVE (NEGATIVE) mg/dL Urine Glucose (UA) NEGATIVE (NEGATIVE) mg/dL Urine Ketones NEGATIVE (NEGATIVE) mg/dL Urine Occult Blood TRACE-INTACT H (NEGATIVE) Urine Nitrite NEGATIVE (NEGATIVE) Urine Bilirubin NEGATIVE (NEGATIVE) Urine Urobilinogen 0.2 (<2.0) EU/dL Ur Leukocyte Esterase NEGATIVE (NEGATIVE) Urine RBC 0-2 (0-2/HPF) Urine WBC 0-1 (0-5/HPF) Ur Epithelial Cells RARE (NONE-FEW) Urine Bacteria FEW (NEGATIVE) Urine Mucus LIGHT (NONE-MOD) Urine Opiates Screen (NEGATIVE) Ur Oxycodone Screen (NEGATIVE) Urine Methadone Screen (NEGATIVE) Ur Barbiturates Screen (NEGATIVE) Ur Phencyclidine Scrn (NEGATIVE) Ur Amphetamine Screen (NEGATIVE) U Methamphetamines Scrn (NEGATIVE) U Benzodiazepines Scrn (NEGATIVE) U Cocaine Metab Screen (NEGATIVE) U Marijuana (THC) Screen (NEGATIVE) Ethyl Alcohol 330 mg/dL SARS-CoV-2 RNA (MIRA) (NEGATIVE) 06/13/21 06/14/21 06/14/21 Range/Units 21:49 06:43 06:43 WBC 8.62 (4.0-11.0) K/uL RBC 4.22 L (4.50-5.90) M/uL Hgb 13.7 (13.0-17.0) g/dL Hct 38.7 (38.0-50.0) % MCV 91.7 (80.0-98.0) fL MCH 32.5 H (27.0-32.0) pg MCHC 35.4 (31.0-37.0) g/dL RDW Std Deviation 50.8 (28.0-62.0) fl RDW Coeff of [place] 15 (11.0-15.0) % Plt Count 152 (150-400) K/uL MPV 9.50 (7.40-12.00) fL Neut % (Auto) 79.5 (48.0-80.0) % Lymph % (Auto) 12.8 L (16.0-40.0) % [place] % (Auto) 7.2 (0.0-15.0) % Eos % (Auto) 0.3 (0.0-7.0) % Baso % (Auto) 0.2 (0.0-1.5) % Neut # (Auto) 6.9 H (1.4-5.7) K/uL Lymph # (Auto) 1.1 (0.6-2.4) K/uL [place] # (Auto) 0.6 (0.0-0.8) K/uL Eos # (Auto) 0.0 (0.0-0.7) K/uL Baso # (Auto) 0.0 (0.0-0.1) K/uL Nucleated RBC % 0.0 /100WBC Nucleated RBCs # 0 K/uL INR Sodium 140 (136-148) mmol/L Potassium 3.5 (3.5-5.1) mmol/L Chloride 101 (98-107) mmol/L Carbon Dioxide 25.1 (21.0-32.0) mmol/L BUN 9 (7.0-18.0) mg/dL Creatinine 0.7 L (0.8-1.3) mg/dL Est Cr Clr Drug Dosing 109.32 Estimated GFR (MDRD) > 60.0 ml/min Glucose 105 (74-106) mg/dL Calcium 8.4 L (8.5-10.1) mg/dL Phosphorus 2.8 (2.6-4.7) mg/dL Magnesium 1.6 L (1.8-2.4) mg/dL Total Bilirubin 1.1 H (0.2-1.0) mg/dL AST 46 H (15-37) IU/L ALT 46 (14-63) IU/L Alkaline Phosphatase 94 (46-116) U/L Troponin I (0.000-0.056) ng/mL Total Protein 7.6 (6.4-8.2) g/dL Albumin 3.6 (3.4-5.0) g/dL Globulin 4.0 (2.6-4.0) g/dL Albumin/Globulin Ratio 0.9 (0.9-1.6) Urine Color Urine Appearance Urine pH (5.0-8.0) Ur Specific [place] (1.001-1.035) Urine Protein (NEGATIVE) mg/dL Urine Glucose (UA) (NEGATIVE) mg/dL Urine Ketones (NEGATIVE) mg/dL Urine Occult Blood (NEGATIVE) Urine Nitrite (NEGATIVE) Urine Bilirubin (NEGATIVE) Urine Urobilinogen (<2.0) EU/dL Ur Leukocyte Esterase (NEGATIVE) Urine RBC (0-2/HPF) Urine WBC (0-5/HPF) Ur Epithelial Cells (NONE-FEW) Urine Bacteria (NEGATIVE) Urine Mucus (NONE-MOD) Urine Opiates Screen NEGATIVE (NEGATIVE) Ur Oxycodone Screen NEGATIVE (NEGATIVE) Urine Methadone Screen NEGATIVE (NEGATIVE) Ur Barbiturates Screen NEGATIVE (NEGATIVE) Ur Phencyclidine Scrn NEGATIVE (NEGATIVE) Ur Amphetamine Screen NEGATIVE (NEGATIVE) U Methamphetamines Scrn NEGATIVE (NEGATIVE) U Benzodiazepines Scrn NEGATIVE (NEGATIVE) U Cocaine Metab Screen NEGATIVE (NEGATIVE) U Marijuana (THC) Screen POSITIVE (NEGATIVE) Ethyl Alcohol mg/dL SARS-CoV-2 RNA (MIRA) (NEGATIVE) Result Diagrams: 06/14/21 06:43 06/14/21 06:43 Sepsis Event Note - Evaluation Sepsis Screening Result: No Definite Risk - Focused Exam Vital Signs: Vital Signs Temp Pulse Resp BP Pulse Ox 06/14/21 09:04 37.5 C 102 H 19 146/91 H 92 L 06/14/21 05:08 36.6 C 88 17 161/84 H 93 L - Problem List & Annotations (1) Fall SNOMED Code(s): 0024758, 863769062 Code(s): W19.XXXA - UNSPECIFIED FALL, INITIAL ENCOUNTER Status: Acute Current Visit: Yes Qualifiers: Encounter type: initial encounter Qualified Code(s): W19.XXXA - Unspecified fall, initial encounter (2) Subarachnoid hemorrhage SNOMED Code(s): 410322666 Code(s): I60.9 - NONTRAUMATIC SUBARACHNOID HEMORRHAGE, UNSPECIFIED Status: Acute Current Visit: Yes - Problem List Review Problem List Initiated/Reviewed/Updated: Yes - My Orders Last 24 Hours: My Active Orders 06/13/21 17:05 Oxygen Therapy [RC] PRN Up ad Marilee [RC] ASDIRECTED VTE/DVT Education [RC] PER UNIT ROUTINE Vital Signs [RC] Q4H Acetaminophen [TylenoL] 650 mg PO Q4H PRN Sequential Compression Device [OM.PC] Per Unit Routine Resuscitation Status Routine 06/13/21 17:06 Antiembolic Devices [RC] PER UNIT ROUTINE Neuro Check [RC] Q4HPRN 06/13/21 17:08 LORazepam [Ativan] See Protocol IVPUSH Q4H PRN 06/13/21 19:05 Telemetry Monitoring [Cardiac Monitoring] [RC] Q8H 06/14/21 09:00 Folic Acid 1 mg SUBCUT DAILY Thiamine [Vitamin B-1] 100 mg IVPUSH DAILY 06/14/21 13:45 diazePAM [Valium.] 5 mg PO BID - Plan Plan:: 70 yo male with PMH of ETOH abuse admitted following a fall with subarachnoid hemorrhage. Subarachnoid hemorrhage: will continue to monitor ETOH abuse: continue CIWAA protocol, thiamin and folic acid, will add Valium
[2021-06-14] MEDS ORDERED: Magnesium Sulfate/Water 2 GM in Premix Bag 1 BAG IV ONE (14:15)
[2021-06-14] MEDS: Diazepam 5 MG Tab PO SCH ×2 (14:45→21:30)
[2021-06-15 08:18] LABS: BLOOD UREA NITROGEN,BUN 7 mg/dL (7.0-18.0); CARBON DIOXIDE,CO2 23.1 mmol/L (21.0-32.0); CHLORIDE,CL 100 mmol/L (98-107); GLUCOSE RANDOM 96 mg/dL (74-106); SODIUM,NA 136 mmol/L (136-148)
[2021-06-15] MEDS: Thiamine 200 MG/2 ML MDV IVPUSH SCH (08:51)
[2021-06-15] MEDS: Diazepam 5 MG Tab PO SCH (08:51)
[2021-06-15] MEDS: Folic Acid 50 MG/10 ML MDV SUBCUT SCH (08:51)
[2021-06-15] MEDS ORDERED: Potassium Chloride 20 MEQ Tab.ER PO SCH (09:00)
[2021-06-15] MEDS ORDERED: Tamsulosin 0.4 MG Cap.ER PO SCH (09:15)
[2021-06-15] MEDS ORDERED: amLODIPine 5 MG Tab PO SCH (09:15)
[2021-06-15] MEDS ORDERED: Hydrochlorothiazide 25 MG Tab PO SCH (09:15)
[2021-06-15] MEDS ORDERED: atorvaSTATin 10 MG Tab PO SCH (09:15)
[2021-06-15] MEDS ORDERED: Finasteride 5 MG Tab PO SCH (09:15)
--- NOTE | 2021-06-15 09:39 | PCM.DCSUM1 ---
Discharge Summary - Discharge Data Discharge Date: 06/15/21 Discharge Disposition: Home, Self-Care 01 Condition: Stable - Referral to Home Health Primary Care Physician: PCP None - Patient Summary/Data Hospital Course: 70 yo male with pmh of ETOH abuse presents to the ED via ambulance after falling. He drinks daily and is intoxicated in the ED. He denies any headache, chest pain, shortness of breath or fevers. IN the ED CT head reported small Subarachnoid hemorrhage of the right frontal convexities. Dr. Martino was called and recommended observation. Patient was monitored two nights and has remained neuro intact. He was placed on Valium and prn Ativan to help avoid withdrawal. Patient has no intention to stop drinking. Patient was discharge home to have follow up with his primary care provider. - Patient Instructions Diet: Regular Diet as Tolerated Activity: As Tolerated - Discharge Plan Home Medications: Home Meds Finasteride 5 mg PO DAILY 06/15/21 [History] Omeprazole 40 mg PO DAILY 06/15/21 [History] Propranolol HCl 80 mg PO BID 06/15/21 [History] Tamsulosin [Flomax] 0.4 mg PO DAILY 06/15/21 [History] amLODIPine [Norvasc] 5 mg PO DAILY 06/15/21 [History] atorvaSTATin [Lipitor] 10 mg PO DAILY 06/15/21 [History] hydroCHLOROthiazide [Hydrochlorothiazide] 25 mg PO DAILY 06/15/21 [History] Referrals: Saúl Huynh MD [Ordering Only Provider] - PCP,None [Primary Care Provider] - - Discharge Summary/Plan Comment DC Time >30 min.: No Total # of Minutes for Discharge Time: 15 - Patient Data Vitals - Most Recent: Last Vital Signs Temp 36.8 C 06/15/21 08:49 Pulse 98 06/15/21 08:49 Resp 17 06/15/21 08:49 BP 156/95 H 06/15/21 08:49 Pulse Ox 96 06/15/21 08:49 Weight - Most Recent: 95.254 kg I&O - Last 24 hours: Intake & Output 06/14/21 06/15/21 06/15/21 22:59 06:59 14:59 Intake Total 720 920 Output Total 250 Balance 470 920 Lab Results - Last 24 hrs: Laboratory Results - last 24 hr 06/15/21 06/15/21 Range/Units 07:22 07:22 WBC 7.17 (4.0-11.0) K/uL RBC 4.07 L (4.50-5.90) M/uL Hgb 13.2 (13.0-17.0) g/dL Hct 37.5 L (38.0-50.0) % MCV 92.1 (80.0-98.0) fL MCH 32.4 H (27.0-32.0) pg MCHC 35.2 (31.0-37.0) g/dL RDW Std Deviation 50.7 (28.0-62.0) fl RDW Coeff of Manasa 15 (11.0-15.0) % Plt Count 126 L (150-400) K/uL MPV 9.20 (7.40-12.00) fL Neut % (Auto) 66.0 (48.0-80.0) % Lymph % (Auto) 23.7 (16.0-40.0) % [place] % (Auto) 8.9 (0.0-15.0) % Eos % (Auto) 1.1 (0.0-7.0) % Baso % (Auto) 0.3 (0.0-1.5) % Neut # (Auto) 4.7 (1.4-5.7) K/uL Lymph # (Auto) 1.7 (0.6-2.4) K/uL [place] # (Auto) 0.6 (0.0-0.8) K/uL Eos # (Auto) 0.1 (0.0-0.7) K/uL Baso # (Auto) 0.0 (0.0-0.1) K/uL Nucleated RBC % 0.0 /100WBC Nucleated RBCs # 0 K/uL Sodium 136 (136-148) mmol/L Potassium 3.0 L (3.5-5.1) mmol/L Chloride 100 (98-107) mmol/L Carbon Dioxide 23.1 (21.0-32.0) mmol/L BUN 7 (7.0-18.0) mg/dL Creatinine 0.7 L (0.8-1.3) mg/dL Est Cr Clr Drug Dosing 109.32 mL/min Estimated GFR (MDRD) > 60.0 ml/min Glucose 96 (74-106) mg/dL Calcium 8.7 (8.5-10.1) mg/dL Phosphorus 3.1 (2.6-4.7) mg/dL Magnesium 2.0 (1.8-2.4) mg/dL Total Bilirubin 1.3 H (0.2-1.0) mg/dL AST 31 (15-37) IU/L ALT 38 (14-63) IU/L Alkaline Phosphatase 84 (46-116) U/L Total Protein 7.7 (6.4-8.2) g/dL Albumin 3.4 (3.4-5.0) g/dL Globulin 4.3 H (2.6-4.0) g/dL Albumin/Globulin Ratio 0.8 L (0.9-1.6) Med Orders - Current: Current Medications Acetaminophen (Acetaminophen 325 Mg Tab) 650 mg PO Q4H PRN PRN Reason: Pain (Mild 1-3)/fever Last Admin: 06/14/21 01:29 Dose: 650 mg Documented by: Amlodipine Besylate (Amlodipine 5 Mg Tab) 5 mg PO DAILY [facility] Atorvastatin Calcium (Atorvastatin 10 Mg Tab) 10 mg PO DAILY [facility] Diazepam (Diazepam 5 Mg Tab) 5 mg PO BID [facility] Last Admin: 06/15/21 08:51 Dose: 5 mg Documented by: Finasteride (Finasteride 5 Mg Tab) 5 mg PO DAILY [facility] Folic Acid (Folic Acid 50 Mg/10 Ml Mdv) 1 mg SUBCUT DAILY [facility] Last Admin: 06/15/21 08:51 Dose: 1 mg Documented by: Hydrochlorothiazide (Hydrochlorothiazide 25 Mg Tab) 25 mg PO DAILY [facility] Lorazepam (Lorazepam 2 Mg/Ml Sdv) 0 mg IVPUSH Q4H PRN; Protocol PRN Reason: CIWAA Last Admin: 06/14/21 13:12 Dose: 1 mg Documented by: Omeprazole (Omeprazole 20 Mg Cap.Cr) 40 mg PO ACBREAKFAST [facility] Potassium Chloride (Potassium Chloride 20 Meq Tab.Er) 40 meq PO BID [facility] Stop: 06/15/21 21:01 Last Admin: 06/15/21 09:11 Dose: 40 meq Documented by: Propranolol HCl (Propranolol 20 Mg Tab) 80 mg PO BID [facility] Tamsulosin HCl (Tamsulosin 0.4 Mg Cap.Er) 0.4 mg PO DAILY [facility] Thiamine HCl (Thiamine 200 Mg/2 Ml Mdv) 100 mg IVPUSH DAILY [facility] Last Admin: 06/15/21 08:51 Dose: 100 mg Documented by: Discontinued Medications Folic Acid (Folic Acid 50 Mg/10 Ml Mdv) 1 mg IV ONETIME ONE Stop: 06/13/21 15:31 Last Admin: 06/13/21 15:49 Dose: 1 mg Documented by: Sodium Chloride (Normal Saline) 1,000 mls @ 999 mls/hr IV STAT ONE Stop: 06/13/21 15:14 Last Admin: 06/13/21 15:47 Dose: Not Given Documented by: Multivitamins/Minerals 10 ml/ (Sodium Chloride) 1,010 mls @ 1,010 mls/hr IV ONETIME ONE Stop: 06/13/21 16:29 Last Admin: 06/13/21 15:50 Dose: 1,010 mls/hr Documented by: Potassium Chloride/Sodium Chloride (Normal Saline With 40 Meq Kcl) 1,000 mls @ 250 mls/hr IV ONETIME ONE Stop: 06/13/21 21:59 Last Admin: 06/13/21 18:18 Dose: 250 mls/hr Documented by: Magnesium Sulfate 2 gm/ Premix 50 mls @ 25 mls/hr IV ONETIME ONE Stop: 06/14/21 16:14 Last Admin: 06/14/21 14:45 Dose: 25 mls/hr Documented by: Thiamine HCl (Thiamine 200 Mg/2 Ml Mdv) 100 mg IVPUSH ONETIME ONE Stop: 06/13/21 15:31 Last Admin: 06/13/21 16:07 Dose: 100 mg Documented by:
[2021-06-15] MEDS ORDERED: Omeprazole 20 MG Cap.CR PO SCH (11:30)
[2021-06-15] MEDS ORDERED: Propranolol 20 MG Tab PO SCH (21:00)
== END 2021-06-15 12:15 | disposition home or self-care (01) ==
LOC: MW.ED 13:55 → MW.MS 15:55
PROVIDERS: ADMIT Internal Medicine; ATTEND Internal Medicine
DX: S06.6X9A Traumatic subarachnoid hemorrhage with loss of consciousness of unspecified duration, initial encounter (principal); F10.129 Alcohol abuse with intoxication, unspecified; F17.210 Nicotine dependence, cigarettes, uncomplicated; Z79.899 Other long term (current) drug therapy; Z20.822 Contact with and (suspected) exposure to COVID-19; W19.XXXA Unspecified fall, initial encounter
CPT/HCPCS: 36415; 70450; 71045; 72125; 72170; 73080; 80053; 80305; 80307; 81001; 83735; 84100; 84484; 85025; 85610; 93005; 96365; 96372; 96375; 96376; 99285; A9270; G0378; J2060; J3411; J3475; J3480; J7030; U0002

== ENCOUNTER 2021-07-09 13:47 | Emergency (ER) | payer MEDICARE, MEDICAID ==
[2021-07-09] MEDS ORDERED: Sodium Chloride 0.9% 1,000 ML IV ONE (14:07)
--- NOTE | 2021-07-09 14:15 | EDM.PDOC ---
ED HPI GENERAL MEDICAL PROBLEM - General Chief Complaint: Drug or Alcohol Abuse Stated Complaint: EMS Time Seen by Provider: 07/09/21 14:01 - History of Present Illness INITIAL COMMENTS - FREE TEXT/NARRATIVE: 70-year-old male presents complaining of fall. Patient is intoxicated. Patient states he fall hit his head and cannot get up. Is complaining some head pain. No other new long bony pain. Patient denies any premonitory signs or symptoms. History is limited secondary to patient's intoxicated state - Related Data Allergies Allergy/AdvReac Type Severity Reaction Status Date / Time No Known Allergies Allergy Verified 06/13/21 13:59 Home Meds: Home Meds Finasteride 5 mg PO DAILY 06/15/21 [History] Omeprazole 40 mg PO DAILY 06/15/21 [History] Propranolol HCl 80 mg PO BID 06/15/21 [History] Tamsulosin [Flomax] 0.4 mg PO DAILY 06/15/21 [History] amLODIPine [Norvasc] 5 mg PO DAILY 06/15/21 [History] atorvaSTATin [Lipitor] 10 mg PO DAILY 06/15/21 [History] hydroCHLOROthiazide [Hydrochlorothiazide] 25 mg PO DAILY 06/15/21 [History] Past Medical History - Past Health History Medical/Surgical History: Denies Medical/Surgical History Other Cardiovascular History: pt states he has heart problem that he takes pills for, but is unable to state what the condition is - Infectious Disease History Infectious Disease History: Reports: Chicken Pox, Mumps Social & Family History - Family History Family Medical History: No Pertinent Family History - Tobacco Use Packs/Tins Daily: 1 - Caffeine Use Caffeine Use: Reports: None Caffeine Use Comment: daily coffee drinker - Recreational Drug Use Recreational Drug Use: No ED ROS GENERAL - Review of Systems Review Of Systems: Unable To Obtain Reason Not Obtained: Intoxication ED EXAM, GENERAL - Physical Exam Exam: See Below Free Text/Narrative:: CONSTITUTIONAL: well appearing in no acute distress SKIN: Warm, dry, and intact without rash HENT: 2 cm abrasion to parietal occipital area on right. No underlying step-off deformities. No midline cervical vertebral tenderness PULMONARY: clear to ausculation bilaterally. No rales, rhonchi, wheezing CARDIOVASCULAR: regular rate, No murmur, rubs, or gallops GASTROINTESTINAL: soft, nondistended, nontender NEUROLOGIC: normal speech, II-XII intact. light touch/5/5 power equal and symmetric in upper and lower extremities without deficit MUSCULOSKELETAL: no gross deformities, atraumatic no long bone tenderness PSYCHIATRIC: normal mood and affect Course - Vital Signs Text/Narrative:: Differential diagnosis: EtOH intoxication, dehydration, electrolyte abn ormalities, skull fracture, intracranial hemorrhage, neck injury, other Patient presents as outlined above. Imaging is negative for any acute injury. Patient sobered up in the emergency department is able to walk and communicate effectively. Remainder the work-up is effectively unremarkable. Supportive care with return precautions and PCP follow-up. Last Recorded V/S: Last Vital Signs Temp 36.3 C 07/09/21 13:56 Pulse 75 07/09/21 13:56 Resp 18 07/09/21 13:56 BP 137/72 07/09/21 13:56 Pulse Ox 98 07/09/21 13:56 - Orders/Labs/Meds Orders: Active Orders 24 hr Category Date Time Status UA RFX BHANU AND CULT IF INDIC [URIN] Stat Lab 07/09/21 14:09 Ordered Labs: Laboratory Tests 07/09/21 07/09/21 Range/Units 13:52 13:52 WBC 7.62 (4.0-11.0) K/uL RBC 4.46 L (4.50-5.90) M/uL Hgb 14.9 (13.0-17.0) g/dL Hct 41.2 (38.0-50.0) % MCV 92.4 (80.0-98.0) fL MCH 33.4 H (27.0-32.0) pg MCHC 36.2 (31.0-37.0) g/dL RDW Std Deviation 48.9 (28.0-62.0) fl RDW Coeff of Manasa 15 (11.0-15.0) % Plt Count 257 (150-400) K/uL MPV 8.90 (7.40-12.00) fL Neut % (Auto) 38.2 L (48.0-80.0) % Lymph % (Auto) 42.7 H (16.0-40.0) % Ceiba % (Auto) 13.0 (0.0-15.0) % Eos % (Auto) 4.9 (0.0-7.0) % Baso % (Auto) 1.2 (0.0-1.5) % Neut # (Auto) 2.9 (1.4-5.7) K/uL Lymph # (Auto) 3.3 H (0.6-2.4) K/uL Ceiba # (Auto) 1.0 H (0.0-0.8) K/uL Eos # (Auto) 0.4 (0.0-0.7) K/uL Baso # (Auto) 0.1 (0.0-0.1) K/uL Nucleated RBC % 0.0 /100WBC Nucleated RBCs # 0 K/uL Sodium 137 (136-148) mmol/L Potassium 3.2 L (3.5-5.1) mmol/L Chloride 98 (98-107) mmol/L Carbon Dioxide 24.4 (21.0-32.0) mmol/L BUN 9 (7.0-18.0) mg/dL Creatinine 0.9 (0.8-1.3) mg/dL Est Cr Clr Drug Dosing 85.02 mL/min Estimated GFR (MDRD) > 60.0 ml/min Glucose 101 (74-106) mg/dL Calcium 9.1 (8.5-10.1) mg/dL Total Bilirubin 0.5 (0.2-1.0) mg/dL AST 60 H (15-37) IU/L ALT 57 (14-63) IU/L Alkaline Phosphatase 85 (46-116) U/L Creatine Kinase 196 (26-308) U/L Total Protein 8.1 (6.4-8.2) g/dL Albumin 4.1 (3.4-5.0) g/dL Globulin 4.0 (2.6-4.0) g/dL Albumin/Globulin Ratio 1.0 (0.9-1.6) Meds: Medications Discontinued Medications Generic Name Dose Route Start Last Admin Trade Name Freq PRN Reason Stop Dose Admin Diphtheria/Tetanus/Acell Pertussis 0.5 ml 07/09/21 14:34 Diphtheria,Pertussis(Acell),Tetanus Vaccine 0.5 Ml Syringe IM 07/09/21 14:35 .ONCE ONE Sodium Chloride 1,000 mls @ 999 mls/hr 07/09/21 14:07 07/09/21 15:19 Normal Saline IV 07/09/21 15:07 999 mls/hr .BOLUS ONE Administration Departure - Departure Time of Disposition: 16:46 Disposition: Home, Self-Care 01 Condition: Good Clinical Impression: Alcohol intoxication, Head injury - Discharge Information Instructions: Head Injury, Adult, Alcohol Use Disorder Forms: ED Department Discharge Additional Instructions: Return for abdominal pain, shortness of breath, any change or worsening condition. Please limit your alcohol use. The following information is given to patients seen in the emergency department who are being discharged to home. This information is to outline your options for follow-up care. We provide all patients seen in our emergency department with a follow-up referral. The need for follow-up, as well as the timing and circumstances, are variable depending upon the specifics of your emergency department visit. If you don't have a primary care physician on staff, we will provide you with a referral. We always advise you to contact your personal physician following an emergency department visit to inform them of the circumstance of the visit and for follow-up with them and/or the need for any referrals to a consulting specialist. The emergency department will also refer you to a specialist when appropriate. This referral assures that you have the opportunity for follow-up care with a specialist. All of these measure are taken in an effort to provide you with optimal care, which includes your follow-up. Primary care clinics in the area: [facility] [address] [place] [id number] [facility] [address] [place] [id number] Under all circumstances we always encourage you to contact your private physician who remains a resource for coordinating your care. When calling for follow-up care, please make the office aware that this follow-up is from your recent emergency room visit. If for any reason you are refused follow-up, please contact the [facility] Emergency Department at and asked to speak to the emergency department charge nurse. Sepsis Event Note (ED) - Evaluation Sepsis Screening Result: No Definite Risk - Focused Exam Vital Signs: Vital Signs Temp Pulse Resp BP Pulse Ox 07/09/21 13:56 36.3 C 75 18 137/72 98 - My Orders Last 24 Hours: My Active Orders 07/09/21 14:09 UA RFX BHANU AND CULT IF INDIC [URIN] Stat - Assessment/Plan Last 24 Hours: My Active Orders 07/09/21 14:09 UA RFX BHANU AND CULT IF INDIC [URIN] Stat
[2021-07-09] MEDS ORDERED: Diphtheria,Pertussis(Acell),Tetanus Vaccine 0.5 ML Syringe IM ONE (14:34)
[2021-07-09 14:42] LABS: BLOOD UREA NITROGEN,BUN 9 mg/dL (7.0-18.0); CARBON DIOXIDE,CO2 24.4 mmol/L (21.0-32.0); CHLORIDE,CL 98 mmol/L (98-107); GLUCOSE RANDOM 101 mg/dL (74-106); POTASSIUM,K 3.2 mmol/L (3.5-5.1); SODIUM,NA 137 mmol/L (136-148)
--- NOTE | 2021-07-09 15:48 | CT ---
INDICATION: Fall TECHNIQUE: CT cervical spine without contrast. COMPARISON: 06/13/2021 FINDINGS: Vertebral alignment: Alignment is normal. Vertebrae: There are no fractures or suspicious bony lesions. Discs and facet joints: Multilevel degenerative changes. Extraspinal findings: Prevertebral soft tissues, visualized airway, and visualized lungs are unremarkable. IMPRESSION: No evidence of acute cervical spine trauma. Multilevel degenerative changes. Please note that all CT scans at this facility use dose modulation, iterative reconstruction, and/or weight-based dosing when appropriate to reduce radiation dose to as low as reasonably achievable. Dictated by Kael Lara MD @ 07/09/2021 3:47:49 PM (Electronically Signed)
--- NOTE | 2021-07-09 15:48 | CT ---
INDICATION: Fall TECHNIQUE: CT head without contrast. COMPARISON: 06/13/2021 FINDINGS: CSF spaces: Within normal limits for age. Brain parenchyma: The santos-white differentiation is normal. No sign of mass, hemorrhage, or midline shift. Skull base and calvarium: The visualized paranasal sinuses and mastoid air cells demonstrate no acute or significant findings. The visualized orbits are grossly unremarkable. No skull fractures. Right parietal scalp hematoma. IMPRESSION: Right parietal scalp hematoma with no associated fractures or evidence of acute intracranial trauma. Please note that all CT scans at this facility use dose modulation, iterative reconstruction, and/or weight-based dosing when appropriate to reduce radiation dose to as low as reasonably achievable. Dictated by Kael Lara MD @ 07/09/2021 3:46:22 PM (Electronically Signed)
== END 2021-07-09 17:15 | disposition home or self-care (01) ==
LOC: MW.ED 13:47
DX: S09.90XA Unspecified injury of head, initial encounter (principal); F10.129 Alcohol abuse with intoxication, unspecified; Z79.899 Other long term (current) drug therapy; Z72.0 Tobacco use; W18.09XA Striking against other object with subsequent fall, initial encounter
CPT/HCPCS: 36415; 70450; 72125; 80053; 82550; 85025; 99284; J7030

== ENCOUNTER 2024-07-15 18:33 | Emergency (ER) | payer MEDICARE, MEDICAID ==
[2024-07-15 18:49] LABS: BASOPHILS ABSOLUTE AUTO 0.03 K/uL (0.00-0.20); BASOPHILS PERCENT AUTO 0.1 % (0.0-1.0); EOSINOPHILS ABSOLUTE AUTO 0.05 K/uL (0.00-0.45); EOSINOPHILS PERCENT AUTO 0.2 % (0.0-6.0); HEMOGLOBIN 13.8 g/dL (14.0-18.0); IMMATURE GRAN ABSOLUTE AUTO 0.09 K/uL (0.00-0.05); IMMATURE GRAN PERCENT AUTO 0.4 % (0.0-0.4); LYMPHOCYTES ABSOLUTE AUTO 1.41 K/uL (1.00-4.80); LYMPHOCYTES PERCENT AUTO 6.4 % (24.0-44.0); MEAN CORPUSCULAR HEMOGLOBIN 33.3 pg (28.0-32.0); MEAN CORPUSCULAR HGB CONC 36.3 g/dL (32.0-36.0); MEAN CORPUSCULAR VOLUME 91.8 fL (83.0-99.0); MEAN PLATELET VOLUME 8.6 fL (9.4-12.4); MONOCYTES ABSOLUTE AUTO 1.37 K/uL (0.00-0.80); MONOCYTES PERCENT AUTO 6.2 % (0.0-8.0); NEUTROPHILS PERCENT AUTO 86.7 % (41.0-71.0); PLATELET COUNT,PLT 460 K/uL (150-400); RED BLOOD CELL COUNT 4.14 M/uL (4.52-5.90); WHITE BLOOD CELL COUNT,WBC 22.05 K/uL (3.9-11.3)
[2024-07-15] MEDS: Sodium Chloride 0.9% 1,000 ML IV ONE ×2 (19:09→20:44)
[2024-07-15] MEDS: Acetaminophen 500 MG Tab PO ONE (19:09)
[2024-07-15 19:17] LABS: A/G RATIO 0.8 (0.9-1.6); ALBUMIN 3.4 g/dL (3.4-5.0); BILIRUBIN TOTAL 0.9 mg/dL (0.2-1.0); CALCIUM 13.5 mg/dL (8.5-10.1); EST CRCL DRUG DOSING (CG) 73.29 mL/min; POTASSIUM,K 4.4 mmol/L (3.5-5.1); PROTEIN TOTAL,TP 7.8 g/dL (6.4-8.2)
[2024-07-15 20:05] LABS: APPEARANCE,URINE SLT CLOUDY; BILIRUBIN,URINE NEGATIVE (NEGATIVE); GLUCOSE,URINE NEGATIVE (NEGATIVE); KETONES,URINE 15 mg/dL (NEGATIVE); LEUKOCYTE ESTERASE,URINE NEGATIVE (NEGATIVE); NITRITE,URINE POSITIVE (NEGATIVE); OCCULT BLOOD,URINE NEGATIVE (NEGATIVE); PH,URINE 5.5 (5.0-8.0); PROTEIN,URINE NEGATIVE (NEGATIVE)
[2024-07-15 20:10] LABS: COLOR,URINE DARK YELLOW
[2024-07-15 20:14] LABS: BACTERIA,URINE 2+ (NEGATIVE); EPITHELIAL CELLS,URINE RARE (NONE-FEW); RBC,URINE 0-2 (0-2/HPF); WBC,URINE 0-4 (0-5/HPF)
[2024-07-15] MEDS: Iopamidol 755 MG/ML 500 ML Multipack Bottle IVPUSH ONE (20:14)
[2024-07-15 20:15] LABS: AMORPHOUS SEDIMENT,URINE FEW (NEGATIVE); AMPHETAMINES SCREEN, URINE NEGATIVE (CUTOFF=500); BARBITURATE SCREEN,URINE NEGATIVE (CUTOFF=200); BENZODIAZEPINES SCREEN,URINE NEGATIVE (CUTOFF=150); BUPRENORPHINE SCREEN,URINE NEGATIVE (CUTOFF=10); METHADONE SCREEN, URINE NEGATIVE (CUTOFF=200); METHAMPHETAMINES SCREEN, URINE NEGATIVE (CUTOFF=500); OXYCODONE SCREEN,URINE NEGATIVE (CUT0FF=100); PCP SCREEN,URINE NEGATIVE (CUTOFF=25); THC SCREEN,URINE 20 NG/ML NEGATIVE (CUTOFF=50)
[2024-07-15 21:33] LABS: LACTIC ACID 1.5 mmol/L (0.4-2.0)
[2024-07-15] MEDS: cefTRIAXone 1 GM in Sodium Chloride 0.9% 50 ML IV ONE (21:44)
[2024-07-15] MEDS: Morphine 2 MG/ML SYRINGE IVPUSH ONE (22:50)
== END 2024-07-15 23:40 ==
LOC: MW.ED 18:33
DX: R19.00 Intra-abdominal and pelvic swelling, mass and lump, unspecified site (principal); N39.0 Urinary tract infection, site not specified; E83.52 Hypercalcemia; F17.210 Nicotine dependence, cigarettes, uncomplicated; Z79.899 Other long term (current) drug therapy; Z75.8 Other problems related to medical facilities and other health care
CPT/HCPCS: 36415; 51702; 70450; 71045; 71260; 72125; 74177; 80053; 80305; 80307; 81001; 82140; 82550; 83605; 83690; 83735; 84484; 85025; 87040; 87086; 87428; 93005; 96361; 96365; 99285; J0696; J3490; J7030; Q9967